=== PATIENT | male | born 1995 | race African-American/Black ===

== ENCOUNTER 2017-08-28 11:30 | Emergency (ER) | payer OTHER ==
[2017-08-28 11:35] VITALS: BP 122/82; PULSE 77; TEMP 98.3; BMI 22.9
--- NOTE | 2017-08-28 12:39 | PDOC ---
History of Present Illness - General Chief Complaint: Revisit,Wound Recheck Stated Complaint: RT HAND/FINGER INJURY Time Seen by Provider: 08/28/17 12:23 History Source: Patient Exam Limitations: No Limitations - History of Present Illness Initial Comments: 08/28/17 12:37 CHIEF COMPLAINT: Patient sustained injury to lateral right fifth finger, here for dressing change HISTORY OF PRESENT ILLNESS: Patient is a 22-year-old male, denies any significant medical history currently on no medication, was prescribed antibiotics yesterday but has not started to take them yet. Patient reports yesterday while at work was shocked by an electric current and thrown back, sustained a laceration to right lateral fifth finger. She was given tetanus shot prescribed Keflex and sutures are placed patient here because of decreased mobility to finger and requesting dressing change. X-ray was not performed yesterday. Past History - Past Medical History Allergies/Adverse Reactions: Allergies Allergy/AdvReac Type Severity Reaction Status Date / Time No Known Allergies Allergy Verified 08/28/17 11:31 Home Medications: Ambulatory Orders Ibuprofen [Motrin -] 600 mg PO QID #28 tablet 08/28/17 COPD: No Other medical history: denies. - Suicide/Smoking/Psychosocial Hx Smoking History: Current every day smoker Number of Cigarettes Smoked Daily: 7 Information on smoking cessation initiated: No Hx Alcohol Use: No Drug/Substance Use Hx: Yes (marijuana.) Substance Use Type: Marijuana Review of Systems - Review of Systems Constitutional: No: Symptoms Reported Musculoskeletal: Yes: Joint Swelling, Other (Decreased ROM to the right lateral fifth finger. ) Integumentary: Yes: Other (Edema to the right lateral fifth finger. ) Neurological: No: Symptoms reported All Other Systems: Reviewed and Negative *Physical Exam - Vital Signs Last Vital Signs Temp Pulse Resp BP Pulse Ox 98.3 F 77 18 122/82 99 08/28/17 11:31 08/28/17 11:31 08/28/17 11:31 08/28/17 11:31 08/28/17 11:31 - Physical Exam General Appearance: Yes: Appropriately Dressed. No: Apparent Distress Neck: negative: Tender lateral, Tender midline Respiratory/Chest: positive: Lungs Clear, Normal Breath Sounds. negative: Respiratory Distress, Accessory Muscle Use Cardiovascular: positive: Regular Rhythm, Regular Rate Musculoskeletal: positive: Decreased Range of Motion (edema to the right lateral fifth finger. ) Extremity: positive: Swelling, Inflammation Integumentary: positive: Swelling. negative: Erythema Neurologic: positive: Alert, Normal Mood/Affect ED Treatment Course - RADIOLOGY Radiology Studies Ordered: Category Date Time Status HAND- RIGHT [RAD] Stat Radiology 08/28/17 12:27 Ordered Medical Decision Making - Medical Decision Making 08/28/17 13:06 A/P: Patient here for evaluation and dressing change to right fifth finger x- ray was performed there is no acute fracture I will apply Xeroform and bacitracin dressing, Motrin for pain, patient to follow-up with [facility] for removal of sutures when instructed. Should start taking antibiotics as instructed. *DC/Admit/Observation/Transfer Diagnosis at time of Disposition: Change of dressing Injury of hand Qualifiers: Encounter type: initial encounter Laterality: right Qualified Code(s): S69.91XA - Unspecified injury of right wrist, hand and finger(s), initial encounter - Discharge Dispostion Disposition: HOME Condition at time of disposition: Stable Admit: No - Prescriptions Prescriptions: Ibuprofen [Motrin -] 600 mg PO QID #28 tablet - Referrals - Patient Instructions Printed Discharge Instructions: DI for Wound Infection Additional Instructions: Patient change dressing daily, start antibiotics as ordered, follow-up with [facility] for suture removal as instructed by them. If any increased redness, swelling, signs of infection return to ER - Post Discharge Activity Forms/Work/School Notes: Back to Work
== END 2017-08-28 13:15 | disposition home or self-care (01) ==
LOC: JERFT 11:30
DX: S61.216D Laceration without foreign body of right little finger without damage to nail, subsequent encounter (principal); W86.1XXD Exposure to industrial wiring, appliances and electrical machinery, subsequent encounter
CPT/HCPCS: 73130-TC-RT; 99281-25

== ENCOUNTER 2017-11-29 10:02 | Emergency (ER) | payer OTHER ==
[2017-11-29 10:10] VITALS: BP 117/54; PULSE 62; TEMP 97.7; BMI 23.2
[2017-11-29] MEDS ORDERED: ALBUTEROL SO4 2.5/IPRATROPIUM 0.5 INH SOL 3 ML VIAL.NEB. NEB ONE ×2 (11:06→11:13)
[2017-11-29] MEDS ORDERED: DEXAMETHASONE SOD PHOSPHATE 10 MG/1 ML VIAL IM ONE (11:06)
[2017-11-29] MEDS ORDERED: DEXAMETHASONE SOD PHOSPHATE 10 MG/1 ML VIAL ONE (11:13)
--- NOTE | 2017-11-29 11:14 | PDOC ---
History of Present Illness - General Chief Complaint: Pain Stated Complaint: Shortness of Breath Time Seen by Provider: 11/29/17 10:40 History Source: Patient Exam Limitations: No Limitations - History of Present Illness Initial Comments: 11/29/17 11:15 Patient came to emergency department with complaints of shortness of breath, cough, difficulty breathing x one week. The denies fever, but states has thick yellow phlegm production. Is a smoker. Timing/Duration: reports: just prior to arrival Severity: reports: mild Associated Symptoms: reports: cough, nasal congestion, shortness of breath. denies: denies symptoms, fever/chills, headache Past History - Travel Traveled outside of the country in the last 30 days: No Close contact w/someone who was outside of country & ill: No - Past Medical History Allergies/Adverse Reactions: Allergies Allergy/AdvReac Type Severity Reaction Status Date / Time No Known Allergies Allergy Verified 11/29/17 10:04 Home Medications: Ambulatory Orders Albuterol Sulfate Inhaler - [Ventolin HFA Inhaler -] 1 - 2 inh PO Q4H #1 inhaler 11/29/17 Azithromycin [Zithromax -] 250 mg PO UTDICT #6 tab 11/29/17 COPD: No - Suicide/Smoking/Psychosocial Hx Smoking History: Current every day smoker Have you smoked in the past 12 months: Yes Number of Cigarettes Smoked Daily: 7 Information on smoking cessation initiated: Yes Hx Alcohol Use: No Drug/Substance Use Hx: Yes (marijuana.) Substance Use Type: Marijuana Review of Systems - Review of Systems Able to Perform ROS?: Yes Is the patient limited Vincentian proficient: Yes Constitutional: Yes: Symptoms Reported, See HPI, Malaise. No: Fever HEENTM: No: Symptoms Reported Respiratory: Yes: Symptoms reported, See HPI, Cough, Shortness of Breath, Wheezing Cardiac (ROS): No: Symptoms Reported ABD/GI: Yes: See HPI. No: Symptoms Reported Integumentary: No: Symptoms Reported Neurological: Yes: Symptoms reported All Other Systems: Reviewed and Negative *Physical Exam - Vital Signs Last Vital Signs Temp Pulse Resp BP Pulse Ox 97.7 F 62 18 117/54 100 11/29/17 10:07 11/29/17 10:07 11/29/17 10:07 11/29/17 10:07 11/29/17 10:07 - Physical Exam General Appearance: Yes: Nourished, Appropriately Dressed, Apparent Distress, Mild Distress HEENT: positive: ANTON, Normal ENT Inspection, Normal Voice, TMs Normal, Pharynx Normal, Rhinorrhea Neck: positive: Supple. negative: Tender, Lymphadenopathy (R), Lymphadenopathy (L) Respiratory/Chest: positive: Rhonchi, Wheezing. negative: Lungs Clear (worse inspiratory and expiratory breath sounds with end expiratory wheezing) Gastrointestinal/Abdominal: positive: Soft. 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 We'll provide albuterol inhaler, patient is a smoker with history of fevers therefore will treat with Z-Keyon to cover bacterial *DC/Admit/Observation/Transfer Diagnosis at time of Disposition: Bronchitis - Discharge Dispostion Disposition: HOME Condition at time of disposition: Stable Admit: No - Prescriptions Prescriptions: Albuterol Sulfate Inhaler - [Ventolin HFA Inhaler -] 1 - 2 inh PO Q4H #1 inhaler Azithromycin [Zithromax -] 250 mg PO UTDICT #6 tab - Referrals Referrals: Travis Morales [Primary Care Provider] - - Patient Instructions Printed Discharge Instructions: DI for Acute Bronchitis Additional Instructions: Rest, drink lots of fluids: Teas, water, soups, Pedialyte Saltwater gargles Steamy showers/seem to face break up mucus Avoid contact with others until fevers and cough resolved Lots of handwashing and good hygiene Continue [id number] medications for symptomatic relief Tylenol or Motrin for fever and pain Continue albuterol nebulizers every 4-6 hours for the next 2 days then as needed for continued cough Followup with private physician in one to 2 days Return to emergency department / pediatric hospital for worsened symptoms, fevers, dehydration - Post Discharge Activity
== END 2017-11-29 12:05 | disposition home or self-care (01) ==
LOC: JERFT 10:02
PROC: 3E0F7GC Introduction of Other Therapeutic Substance into Respiratory Tract, Via Natural or Artificial Opening (ICD-10-PCS; principal; 2017-11-29)
PROC: 3E023GC Introduction of Other Therapeutic Substance into Muscle, Percutaneous Approach (ICD-10-PCS; 2017-11-29)
DX: J40 Bronchitis, not specified as acute or chronic (principal); F17.210 Nicotine dependence, cigarettes, uncomplicated
CPT/HCPCS: 94640; 96372; 99281-25; J1100